=== PATIENT | male | born 1950 | race Caucasian/White ===

== ENCOUNTER → 2020-04-18 | Outpatient (CLI) | payer MEDICARE ==
--- NOTE | 2020-04-19 11:00 | ECHOF ---
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 This was a technically good study. The left ventricular size is normal. Left ventricular wall thickness is normal. Overall left vent ricular systolic function is normal with, an EF between 55 - 60 %. The diastolic filling pattern is normal for the age of the patient 12.18. The right ventricle is mildly enlarged. The left atrial size is normal. Normal LA size by volume 22+/-6 ml/m2. The right atrial size is normal. The aortic valve is trileaflet and appears structurally normal. The mitral valve is normal. There is trace mitral regurgitation. The tricuspid valve appears structurally normal. Trace tricuspid regurgitation present. Right arnold tricular systolic pressure is normal at < 35 mmHg. There is no pulmonic regurgitation present. 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 The inferior vena cava is mildly dilated. There is no pericardial effusion. CONCLUSIONS -------- 1. Sinus rhythm. 2. This was a technically good study. 3. The left ventricular size is normal. 4. Left ventricular wall thickness is normal. 5. Overall left ventricular systolic function is normal with, an EF between 55 - 60 %. 6. The diastolic filling pattern is normal for the age of the patient 12.18 7. The right ventricle is mildly enlarged. 8. The left atrial size is normal. 9. Normal LA size by volume 22+/-6 ml/m2. 10. The right atrial size is normal. 11. The aortic valve is trileaflet and appears structurally normal. 12. The mitral valve is normal. 13. There is trace mitral regurgitation. 14. The tricuspid valve appears structurally normal. 15. Trace tricuspid regurgitation present. 16. Right ventricular systolic pressure is normal at < 35 mmHg. 17. There is no pulmonic regurgitation present. 18. 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 19. The inferior vena cava is mildly dilated. 20. There is no pericardial effusion. SCREW MACHINE OPERATOR: Seema Brennan RDCS
== END | disposition home or self-care (01) ==
LOC: RADECHMAIN 14:46
PROVIDERS: ATTEND Internal Medicine Rheumatology
DX: I08.1 Rheumatic disorders of both mitral and tricuspid valves (principal)
CPT/HCPCS: 93306

== ENCOUNTER → 2020-04-30 | Outpatient (CLI) | payer MEDICARE | END | disposition home or self-care (01) | LOC: CPPFTMAIN 12:02 | PROVIDERS: ATTEND Internal Medicine Rheumatology | DX: R94.2 Abnormal results of pulmonary function studies (principal) | CPT/HCPCS: 94060; 94726; 94729 ==

== ENCOUNTER → 2020-07-03 | Outpatient (CLI) | payer MEDICARE ==
--- NOTE | 2020-07-04 07:27 | CT ---
EXAMINATION TYPE: CT chest wo con DATE OF EXAM: 07/03/2020 COMPARISON: None HISTORY: Systemic sclerosis. CT DLP: 769.70 mGycm, Automated exposure control for dose reduction was used. CONTRAST: None TECHNIQUE: Axial images were obtained at 1 mm thick sections at 10 mm intervals. This will limit po rtions of the examination which may not be visualized within the [id number]. Images were obtained in the prone and supine views. FINDINGS: Portion of the thyroid visualized is normal. There is some posterior pleural calcification at the right upper lung field. Emphysematous bulla are evident. Some mild bronchiectasis present 1 basis. There is some thickening along the left diaphragm and the supine view. This has improvement on the pr one imaging suggesting atelectasis within the differential. Some mild residual lung markings remain a t the lung base and follow-up CT chest can be performed to document resolution. No enlarged mediastinal or hilar adenopathy is evident. The ascending aorta diameter at the level o f the main pulmonary artery is 4.0 cm. The main pulmonary artery diameter at the bifurcation is 3.0 cm. Coronary artery calcifications present. Limited CT sections are obtained through the upper abdomen. A 1 cm cyst may be present within the mid right lobe liver measuring 8 Hounsfield units. Small hiatal hernia may be present. IMPRESSIONS: 1. Ascending thoracic aortic aneurysm. 2. Mild bilateral basilar bronchiectasis. 3. Probable atelectasis which resolves on prone imaging. Mild residual lung markings remain and follo w-up CT chest can be performed to document resolution. 4 hepatic cyst
== END | disposition home or self-care (01) ==
LOC: RADCTMAIN 16:20
PROVIDERS: ATTEND Internal Medicine
DX: J47.9 Bronchiectasis, uncomplicated (principal); I71.2 Thoracic aortic aneurysm, without rupture; M34.9 Systemic sclerosis, unspecified
CPT/HCPCS: 71250

== ENCOUNTER → 2023-02-23 | Outpatient (CLI) | payer MEDICARE ==
--- NOTE | 2023-02-24 09:52 | CA ---
Transthoracic Echo Report Name: Rodríguez Bryan Age: 73 Gender: M : 1950 Exam Date: 02/23/2023 14:23 Exam Location: [facility] Ht (in): 70 Wt (lb): 200 Ordering Physician: Haroldo Perez MD Attending/Referring Phys: Haroldo Perez MD Increment Manager Mable Banks, [facility] Procedure CPT: Indications: M34.9 Cardiac Hx: Technical Quality: Fair Contrast 1: Total Dose (mL): Contrast 2: Total Dose (mL): MEASUREMENTS (Male / Female) Normal Values 2D ECHO LV Diastolic Diameter PLAX 4.0 cm 4.2 - 5.9 / 3.9 - 5.3 cm LV Systolic Diameter PLAX 2.6 cm IVS Diastolic Thickness 1.4 cm 0.6 - 1.0 / 0.6 - 0.9 cm LVPW Diastolic Thickness 1.5 cm 0.6 - 1.0 / 0.6 - 0.9 cm LV Relative Wall Thickness 0.7 RV Internal Dim ED PLAX 3.2 cm LVOT Diameter 3.3 cm M-MODE Aortic Root Diameter MM 4.3 cm LA Systolic Diameter MM 3.7 cm LA Ao Ratio MM 0.9 MV E Point Septal Separation 0.7 cm AV Cusp Separation MM 3.0 cm DOPPLER AV Peak Velocity 106.8 cm/s AV Peak Gradient 4.6 mmHg Mitral E Point Velocity 73.1 cm/s Mitral A Point Velocity 106.4 cm/s Mitral E to A Ratio 0.7 MV Deceleration Time 400.2 ms MV E' Velocity 3.4 cm/s Mitral E to MV E' Ratio 21.2 TR Peak Velocity 206.9 cm/s TR Peak Gradient 17.1 mmHg Right Ventricular Systolic Press 27.1 mmHg FINDINGS Left Ventricle Left ventricular ejection fraction is estimated at 55-60 %. Small left ventricular cavity. Moderately increased septal wall thickness. No obvious regional wall motion abnormalities. Right Ventricle Normal right ventricular size and function. Right ventricular systolic pressure within normal limits. Right ventricular systolic pressure estimated at 27 mm hg. Right Atrium Normal right atrial size. Left Atrium Normal left atrial size. Mitral Valve Structurally normal mitral valve. Mild mitral annular calcification. No mitral regurgitation. No evidence for mitral valve prolapse. Aortic Valve Trileaflet aortic valve. No aortic valve stenosis or regurgitation. Tricuspid Valve Tricuspid valve not well visualized. Mild tricuspid regurgitation. Pulmonic Valve Structurally normal pulmonic valve. Trace pulmonic regurgitation. Pericardium Normal pericardium. No pericardial effusion. Aorta Moderate aortic dilatation at the level of the sinuses of valsalva 43 mm CONCLUSIONS Normal LV systolic function. Normal intracardiac valves Previewed by: Dr. Jameson Guzman MD (Electronically Signed) Final Date: 24 February 2023 09:51
== END | disposition home or self-care (01) ==
LOC: RADECHMAIN 13:51
PROVIDERS: ATTEND Internal Medicine
DX: M34.9 Systemic sclerosis, unspecified (principal)
CPT/HCPCS: 93306; 94060; 94726; 94729

== ENCOUNTER → 2024-11-15 | Outpatient (CLI) | payer MEDICARE | LOC: CPPFTMAIN 14:07 | PROVIDERS: ATTEND Internal Medicine Rheumatology | DX: R06.02 Shortness of breath (principal) | CPT/HCPCS: 94060; 94726; 94729 ==